=== PATIENT | male | born 1970 | race Two or more races ===

== ENCOUNTER 2021-10-19 01:01 | Emergency (ER) | payer MEDICAID, OTHER ==
[~2021-10-19] VITALS: Ht 170.2 cm; Wt 142.4 kg
[2021-10-19 01:51] LABS: Basophils # (auto) 0 10 ^3/uL (0-0.2); Basophils % (auto) 0.1 % (0.0-2.0); Eosinophils # (auto) 0.1 10 ^3/uL (0-0.8); Eosinophils % (auto) 0.9 % (0.0-7.0); Hematocrit 48.5 % (41.0-53.0); Hemoglobin 15.7 g/dL (13.5-17.5); Lymphocytes # (auto) 2.7 10 ^3/uL (0.4-5.4); Lymphocytes % (auto) 21.7 % (10.0-50.0); Mean Corpuscular Hemoglobin 28.5 pg (28.0-32.0); Mean Corpuscular Hgb Conc. 32.4 g/dL (32.0-36.0); Mean Corpuscular Volume 87.9 fL (80.0-100.0); Monocytes # (auto) 0.8 10 ^3/uL (0-1.3); Monocytes % (auto) 6.2 % (0.0-12.0); Neutrophils # (auto) 8.9 10 ^3/uL (1.6-8.6); Neutrophils % (auto) 71.1 % (37.0-80.0); Nucleated Red Blood Cells % 0.1 %; Red Blood Cells 5.51 10^6/uL (4.5-5.90); White Blood Cell 12.6 10^3/uL (4.4-10.8)
[2021-10-19] MEDS ORDERED: ONDANSETRON HCL 4 MG/2 ML VIAL IV ONE (02:00)
[2021-10-19] MEDS ORDERED: ASPirin 325 MG TAB PO ONE (02:00)
[2021-10-19] MEDS ORDERED: MORPHINE SULFATE 4 MG/ML SYR/VIAL IV ONE (02:00)
[2021-10-19 02:16] LABS: Albumin 3.5 g/dL (3.4-5.0); Calcium 8.8 mg/dL (8.5-10.1); Magnesium 2.1 mg/dL (1.6-2.6); Potassium 5.2 mmol/L (3.5-5.1)
[2021-10-19 02:19] LABS: Bilirubin, Total 0.4 mg/dL (0.2-1.0)
[2021-10-19] MEDS ORDERED: FAMOTIDINE INJECTION 40 MG in SODIUM CHL 0.9% 100 ML IV ONE (02:30)
[2021-10-19] MEDS ORDERED: FAMOTIDINE (10MG/ML) 2ML VL IV ONE ×2 (02:36→02:45)
[2021-10-19] MEDS ORDERED: IPRATROPIUM BROM 0.5 MG/2.5ML INH SOL NEB ONE (03:00)
[2021-10-19] MEDS ORDERED: ALBUTEROL SULF 2.5 MG/0.5ML(0.5%) NEB SOLN NEB ONE (03:00)
[2021-10-19] MEDS ORDERED: SODIUM CHLORIDE 0.9% 1,000 ML IV ONE (03:15)
[2021-10-19 05:20] LABS: Urine Bacteria NONE SEEN /hpf (None Seen); Urine Blood Negative /uL (Negative); Urine Mucus FEW (None Seen); Urine Specific Gravity 1.025 (1.001-1.035); Urine WBC <1 /hpf (0 - 3)
[2021-10-19] MEDS ORDERED: InsuLIN REG 1unit/0.01ml Soln (100units/ml) IV ONE (08:15)
[2021-10-19] MEDS ORDERED: SPIRONOLACTONE 25 MG TAB PO ONE (08:15)
[2021-10-19] MEDS ORDERED: FUROSEMIDE 20 MG/2 ML VIAL IV ONE (08:15)
[2021-10-19 11:29] VITALS: BP 155/81
[2021-10-19] MEDS ORDERED: METF-371 PO ×2 (11:59→13:24)
[2021-10-19] MEDS ORDERED: GLIM1TAB PO (11:59)
[2021-10-19] MEDS ORDERED: FURO1TAB33 PO (11:59)
[2021-10-19] MEDS ORDERED: InsuLIN REG 1unit/0.01ml Soln (100units/ml) SC ONE (12:00)
[2021-10-19] MEDS ORDERED: SPIR25TA PO ×2 (12:00→13:24)
[2021-10-19] MEDS ORDERED: GLIM-5 PO (13:24)
[2021-10-19] MEDS ORDERED: FURO20TA3 PO (13:24)
== END 2021-10-20 07:25 | disposition home or self-care (01) ==
LOC: ER 01:01
DX: R09.89 Other specified symptoms and signs involving the circulatory and respiratory systems (principal); E87.5 Hyperkalemia; E11.21 Type 2 diabetes mellitus with diabetic nephropathy; E66.01 Morbid (severe) obesity due to excess calories; Z68.42 Body mass index [BMI] 45.0-49.9, adult; Z20.822 Contact with and (suspected) exposure to COVID-19
CPT/HCPCS: 36415; 71045; 80053; 81001; 82962; 83605; 83735; 83880; 84443; 84484; 85025; 85379; 87040; 87426; 93005; 94640; 96361; 96372; 96374; 96375; 99285; J1815; J1940; J2270; J2405; J3490; J7030; J7644